=== PATIENT | male | born 1985 | race Native Hawaiian/Other Pacific Islander ===

== ENCOUNTER 2017-02-05 10:23 | Emergency (ER) | payer OTHER ==
[2017-02-05] MEDS ORDERED: PROPARACAINE 0.5% OPHTH DROPS 15 ML BTL RIGHT EYE STA (11:03)
--- NOTE | 2017-02-05 11:06 | ED ---
Eye Problem HPI <Woodrow Green - Last Filed: 02/05/17 11:50> - General Source: patient, RN notes reviewed Mode of arrival: ambulatory Limitations: no limitations <Kristina Pacheco - Last Filed: 02/05/17 15:48> - General Chief complaint: Eye Problems Stated complaint: RT EYE INJURY Time Seen by Provider: 02/05/17 10:42 - History of Present Illness Initial comments: Patient is a 31-year-old male presents emergency room for evaluation of right eye injury. Patient states he was shooting a bow and arrow in the string broke off and hit him in the right eye. Patient states he was wearing his glasses at the time. Patient states having significant pain in his right eye. Patient states he can barely open his eye due to swelling and pain. Patient states the incident happened about 30 minutes ago. Patient denies any other injuries during incident. Patient states he is unable to see out of his right eye since the incident. (Kristina Pacheco) - Related Data Home Medications Medication Instructions Recorded Confirmed Amoxicillin 500 mg PO TID 02/05/17 02/05/17 Allergies Allergy/AdvReac Type Severity Reaction Status Date / Time No Known Allergies Allergy Verified 02/05/17 10:56 Review of Systems ROS Other: All systems not noted in ROS Statement are negative. <Woodrow Green - Last Filed: 02/05/17 11:50> ROS Other: All systems not noted in ROS Statement are negative. <Kristina Pacheco - Last Filed: 02/05/17 15:48> ROS Statement: Those systems with pertinent positive or pertinent negative responses have been documented in the HPI. Past Medical History Past Medical History: No Reported History History of Any Multi-Drug Resistant Organisms: None Reported Past Surgical History: No Surgical Hx Reported Past Psychological History: No Psychological Hx Reported Smoking Status: Current every day smoker Past Alcohol Use History: Occasional Past Drug Use History: None Reported <Kristina Pacheco - Last Filed: 02/05/17 15:48> General Exam <Woodrow Green - Last Filed: 02/05/17 11:50> Limitations: no limitations General appearance: alert, in no apparent distress Head exam: Present: atraumatic, normocephalic, normal inspection Eye exam: Present: EOMI. Absent: PERRL (Left pupil nonreactive to light) Expanded Eyelids: Normal Inspection: Left, Swelling: Right Sclera/Conjunctival: Injection: Right (corneal abrasion ) Anterior chamber: Hyphema: Right ENT exam: Present: normal exam Neck exam: Present: normal inspection Respiratory exam: Absent: respiratory distress Extremities exam: Present: normal inspection Back exam: Present: normal inspection Neurological exam: Present: alert, oriented X3, CN II-XII intact, normal gait Psychiatric exam: Present: normal affect, normal mood Skin exam: Present: warm, dry, intact, normal color. Absent: rash <Kristina Pacheco - Last Filed: 02/05/17 15:48> - General Exam Comments Initial Comments: Sitting in exam room, no acute distress. (Kristina Pacheco) Medical Decision Making <Woodrow Green - Last Filed: 02/05/17 11:50> - Radiology Data Radiology results: report reviewed, image reviewed <Kristina Pacheco - Last Filed: 02/05/17 15:48> - Medical Decision Making The patient is seen and examined. He has a large hyphema noted to the right eye. There is some periorbital contusion noted. There is a large corneal abrasion horizontally was forcing uptake. There is an irregular pupil on the right side. The case is discussed with Dr. Machuca from ophthalmology and he would like the patient to have a computed tomography scan of the orbits and sent directly to his office today. I have discussed the case with the PA and agree with the findings as documented. (Woodrow Green) Patient is a 31-year-old male presents to the emergency room for evaluation of right eye injury. Dr. Green also evaluated patient. Dr. Green spoke with on- call tree inspector, Dr. Machuca who advised that patient receive a computed tomography scan of orbits and come directly to his office. Plan was discussed with patient. Patient states he understands everything that was discussed with him. (Kristina Pacheco) Disposition <Woodrow Green - Last Filed: 02/05/17 11:50> Time of Disposition: 11:52 <Kristina Pacheco - Last Filed: 02/05/17 15:48> Clinical Impression: Periorbital contusion of right eye, Hyphema of right eye, Corneal abrasion, right Disposition: HOME SELF-CARE Condition: Good Instructions: Hyphema (ED), Corneal Abrasion (ED) Additional Instructions: Please go directly to Dr. Meeks's office for further evaluation. If any new symptom arises or symptoms worsen, return to ER as soon as possible. Referrals: Brenna Machuca MD [STAFF PHYSICIAN] - 1-2 days
[2017-02-05] MEDS ORDERED: HYDROcodone/APAP 5-325MG 1 EACH TAB PO STA (11:51)
[2017-02-05 12:45] VITALS: BP 159/94; PULSE 79; RESP 18; TEMP 98
--- NOTE | 2017-02-05 12:46 | CT ---
EXAMINATION TYPE: CT orbits wo con DATE OF EXAM: 02/05/2017 12:40 PM COMPARISON: NONE HISTORY: Patient was hit in eye with a bow string CT DLP: 307 mGycm Automated exposure control for dose reduction was used. Unenhanced CT of the orbits was performed in the axial and coronal planes. Bone and soft tissue window settings are submitted. FINDINGS: There is right periorbital soft tissue edema noted. The globes appear symmetric and intact. There is no evidence for intraorbital hemorrhage. No definite foreign body is seen. Retroconal soft tissues ar e unremarkable. Optic nerves and extraocular musculature appear within normal limits. There is eviden ce of chronic maxillary and ethmoidal sinusitis. No displaced osseous fractures are seen. IMPRESSION: 1. RIGHT PERIORBITAL SOFT TISSUE SWELLING. 2. CHRONIC SINUSITIS.
== END 2017-02-05 12:45 | disposition home or self-care (01) ==
LOC: EC 10:23
DX: S05.11XA Contusion of eyeball and orbital tissues, right eye, initial encounter (principal); F17.200 Nicotine dependence, unspecified, uncomplicated; W20.8XXA Other cause of strike by thrown, projected or falling object, initial encounter; Y93.89 Activity, other specified
CPT/HCPCS: 70480; 99283

== ENCOUNTER 2017-07-13 15:40 | Emergency (ER) | payer OTHER ==
[2017-07-13 15:45] VITALS: RESP 18
[2017-07-13] MEDS ORDERED: HYDROmorphone 1 MG/ML 1 ML SYRINGE IVP STA (16:03)
[2017-07-13] MEDS ORDERED: ONDANSETRON 4 MG/2 ML VIAL IVP STA (16:03)
[2017-07-13] MEDS ORDERED: SODIUM CHLORIDE 0.9% 1,000 ML IV STA (16:03)
--- NOTE | 2017-07-13 16:05 | ED ---
General Adult HPI - General Chief complaint: Abdominal Pain Stated complaint: Abd Pain Time Seen by Provider: 07/13/17 15:50 Source: patient, RN notes reviewed Mode of arrival: ambulatory Limitations: no limitations - History of Present Illness Initial comments: Patient 31-year-old male said no significant past medical history, who presents emergency room today with chief complaint of abdominal pain on and off over the last few months. He does admit that it's been more constant today. Currently rates it a 6/10. States located in the right side of the abdomen. Patient states started on the right upper quadrant but is moving down onto the right lower quadrants well. He states he has noticed that sometimes when he eats or drinks the pain seems to be worse. States is also considered. Possible kidney stone. He has noticed that he's had some bouts of constipation and some increased pressure with voiding. He denies any other complaints or associated symptoms. Patient denies any recent fever, chills, shortness of breath, chest pain, nausea or vomiting, numbness or tingling, dysuria or hematuria, constipation or diarrhea, headaches or visual changes, or any other complaints. - Related Data Home Medications Medication Instructions Recorded Confirmed Naproxen Sodium [Aleve] 440 mg PO Q12HR PRN 07/13/17 07/13/17 Timolol 0.5% Ophth Soln [Timoptic 1 drop RIGHT EYE DAILY 07/13/17 07/13/17 0.5% Ophth Soln] prednisoLONE ACETATE 1% OPHTH 1 drops RIGHT EYE QID 07/13/17 07/13/17 [Pred Forte 1%] Allergies Allergy/AdvReac Type Severity Reaction Status Date / Time codeine Allergy Rash/Hives Verified 07/13/17 17:51 Review of Systems ROS Statement: Those systems with pertinent positive or pertinent negative responses have been documented in the HPI. ROS Other: All systems not noted in ROS Statement are negative. Past Medical History Past Medical History: No Reported History History of Any Multi-Drug Resistant Organisms: None Reported Past Surgical History: No Surgical Hx Reported Past Psychological History: No Psychological Hx Reported Smoking Status: Current every day smoker Past Alcohol Use History: Occasional Past Drug Use History: None Reported General Exam - General Exam Comments Initial Comments: General: The patient is awake and alert, in no distress, and does not appear acutely ill. Eye: Pupils are equal, round and reactive to light, extra-ocular movements are intact. No nystagmus. There is normal conjunctiva bilaterally. No signs of icterus. Ears, nose, mouth and throat: There are moist mucous membranes and no oral lesions. Neck: The neck is supple, there is no tenderness or JVD. Cardiovascular: There is a regular rate and rhythm. No murmur, rub or gallop is appreciated. Respiratory: Lungs are clear to auscultation, respirations are non-labored, breath sounds are equal. No wheezes, stridor, rales, or rhonchi. Gastrointestinal: Normal appearance then. Normal bowel sounds. Abdomen soft on palpation. Patient does have tenderness in the right upper quadrant. Mild right-sided CVA tenderness. No guarding. No rebound tenderness. Musculoskeletal: Normal ROM, no tenderness. Strength 5/5. Sensation intact. Pulses equal bilaterally 2+. Neurological: A&O x 3. CN II-XII intact, There are no obvious motor or sensory deficits. Coordination appears grossly intact. Speech is normal. Skin: Skin is warm and dry and no rashes or lesions are noted. Psychiatric: Cooperative, appropriate mood & affect, normal judgment. Limitations: no limitations Course Vital Signs 07/13/17 07/13/17 15:43 16:48 Temperature 98.9 F Pulse Rate 87 87 Respiratory 18 18 Rate Blood Pressure 175/99 149/80 O2 Sat by Pulse 100 98 Oximetry Medical Decision Making - Medical Decision Making Patient reexamined at this time and show no signs of distress. Resting tone with a stretcher. His labs been reviewed shows an 11,000 white count. Patient' s x-ray shows a moderate amount stool no sign of obstruction. Patient's ultrasound is negative for any evidence of gallstones. Results were discussed with the patient. Sinus symptoms return were discussed with the patient. At this time just been discharged from he will be given magnesium citrate and advised to use this for his symptoms. Advised to follow-up with family doctor over the next 2 days return here to the emergency room symptoms increase or worsen. - Lab Data Result diagrams: 07/13/17 16:24 07/13/17 16:24 Lab Results 07/13/17 07/13/17 07/13/17 Range/Units 16:24 16:24 17:46 WBC 11.2 H (3.8-10.6) k/uL RBC 4.90 (4.30-5.90) m/uL Hgb 15.4 (13.0-17.5) gm/dL Hct 43.5 (39.0-53.0) % MCV 88.7 (80.0-100.0) fL MCH 31.4 (25.0-35.0) pg MCHC 35.4 (31.0-37.0) g/dL RDW 12.9 (11.5-15.5) % Plt Count 308 (150-450) k/uL Neutrophils % 58 % Lymphocytes % 29 % Monocytes % 7 % Eosinophils % 4 % Basophils % 1 % Neutrophils # 6.5 (1.3-7.7) k/uL Lymphocytes # 3.2 (1.0-4.8) k/uL Monocytes # 0.8 (0-1.0) k/uL Eosinophils # 0.5 (0-0.7) k/uL Basophils # 0.1 (0-0.2) k/uL Sodium 142 (137-145) mmol/L Potassium 4.3 (3.5-5.1) mmol/L Chloride 106 (98-107) mmol/L Carbon Dioxide 25 (22-30) mmol/L Anion Gap 11 mmol/L BUN 14 (9-20) mg/dL Creatinine 0.99 (0.66-1.25) mg/dL Est GFR (MDRD) Af Amer >60 (>60 ml/min/1.73 sqM) Est GFR (MDRD) Non-Af >60 (>60 ml/min/1.73 sqM) Glucose 90 (74-99) mg/dL Calcium 9.6 (8.4-10.2) mg/dL Total Bilirubin 0.4 (0.2-1.3) mg/dL AST 52 (17-59) U/L ALT 95 H (21-72) U/L Alkaline Phosphatase 74 (38-126) U/L Total Protein 7.2 (6.3-8.2) g/dL Albumin 4.7 (3.5-5.0) g/dL Amylase 58 (30-110) U/L Lipase 52 (23-300) U/L Urine Color Yellow Urine Appearance Clear (Clear) Urine pH 6.0 (5.0-8.0) Ur Specific Grandy 1.017 (1.001-1.035) Urine Protein Negative (Negative) Urine Glucose (UA) Negative (Negative) Urine Ketones Negative (Negative) Urine Blood Negative (Negative) Urine Nitrite Negative (Negative) Urine Bilirubin Negative (Negative) Urine Urobilinogen <2.0 (<2.0) mg/dL Ur Leukocyte Esterase Negative (Negative) Disposition Clinical Impression: Abdominal pain Disposition: HOME SELF-CARE Condition: Poor Instructions: Abdominal Pain (ED) Additional Instructions: Please use medication as discussed. Please follow-up with family doctor in the next 2 days of symptoms have not improved. Please return to emergency room if the symptoms increase or worsen or for any other concerns. Referrals: None,Stated [Primary Care Provider] - 1-2 days Yinka Pagan MD [STAFF PHYSICIAN] - 1-2 days Time of Disposition: 18:16
[2017-07-13 16:34] LABS: Basophils # (A) 0.1 k/uL (0-0.2); Basophils % (A) 1 %; CH 32.4; CHCM 36.7; Eosinophils # (A) 0.5 k/uL (0-0.7); Eosinophils % (A) 4 %; HCT 43.5 % (39.0-53.0); HDW 2.38; HGB 15.4 gm/dL (13.0-17.5); Luc # (Auto) 0.13; Luc % (Auto) 1; Lymphocytes # (A) 3.2 k/uL (1.0-4.8); Lymphocytes % (A) 29 %; MCH 31.4 pg (25.0-35.0); MCHC 35.4 g/dL (31.0-37.0); MCV 88.7 fL (80.0-100.0); Mean Platelet Volume 7.4; Monocytes # (A) 0.8 k/uL (0-1.0); Monocytes % (A) 7 %; Neutrophils # (A) 6.5 k/uL (1.3-7.7); Neutrophils % (A) 58 %; RDW 12.9 % (11.5-15.5); WBC 11.2 k/uL (3.8-10.6); WBC (Perox) 10.33
[2017-07-13 16:43] LABS: ALT 95 U/L (21-72); AST 52 U/L (17-59); Alkaline Phosphatase 74 U/L (38-126); Amylase 58 U/L (30-110); Anion Gap 11 mmol/L; Blood Urea Nitrogen 14 mg/dL (9-20); Calcium 9.6 mg/dL (8.4-10.2); Carbon Dioxide 25 mmol/L (22-30); Chloride 106 mmol/L (98-107); Glucose 90 mg/dL (74-99); Non-African American GFR(MDRD) >60 (>60 ml/min/1.73 sqM); Potassium 4.3 mmol/L (3.5-5.1); Sodium 142 mmol/L (137-145); Total Bilirubin 0.4 mg/dL (0.2-1.3); Total Protein 7.2 g/dL (6.3-8.2)
--- NOTE | 2017-07-13 16:44 | XR ---
EXAMINATION TYPE: XR KUB DATE OF EXAM: 07/13/2017 COMPARISON: NONE HISTORY: Right-sided pain and pressure TECHNIQUE: 2 views FINDINGS: Bowel gas pattern is normal. There is no sign of intestinal obstruction or pneumoperitoneum . Fecal pattern is normal. There are no pathologic calcifications over the kidneys. Bony structures a re intact. IMPRESSION: Nonacute abdomen.
[2017-07-13 17:53] LABS: Appearance,Urine Clear (Clear); Bilirubin,Urine Negative (Negative); Glucose,Urine (UA) Negative (Negative); Ketones,Urine Negative (Negative); Leukocyte Esterase,Urine Negative (Negative); Nitrite,Urine Negative (Negative); Protein,Urine Negative (Negative); Specific Gravity,Urine 1.017 (1.001-1.035); UA Billing (MACRO vs. MICRO) CHEM; Urobilinogen,Urine <2.0 mg/dL (<2.0)
--- NOTE | 2017-07-13 17:54 | US ---
EXAMINATION TYPE: US abdomen limited DATE OF EXAM: 07/13/2017 COMPARISON: NONE CLINICAL HISTORY: Pain. Abdomen pain and nausea x 2 weeks, exam done portable in ER. EXAM MEASUREMENTS: Liver Length: 15.1 cm Gallbladder Wall: 0.2 cm CBD: 0.3 cm Right Kidney: 11.2 x 4.2 x 5.2 cm Pancreas: visualized portions wnl, tail obscured by overlying midline bowel gas Liver: wnl Gallbladder: wnl Evidence for sonographic Louie's sign: no CBD: wnl Right Kidney: visualized portions wnl, inferior pole limited by overlying bowel gas IMPRESSION: Normal right upper quadrant abdominal sonogram. No gallstones or dilated ducts.
[2017-07-13] MEDS ORDERED: MAGNESIUM CITRATE 296 ML BOTTLE PO ONE (18:17)
[2017-07-13 18:41] VITALS: BP 140/90; PULSE 60; TEMP 98.3
== END 2017-07-13 18:39 | disposition home or self-care (01) ==
LOC: EC 15:40
DX: R10.11 Right upper quadrant pain (principal); R10.31 Right lower quadrant pain; K59.00 Constipation, unspecified; R68.89 Other general symptoms and signs; F17.200 Nicotine dependence, unspecified, uncomplicated; Z79.52 Long term (current) use of systemic steroids; Z79.899 Other long term (current) drug therapy; Z88.5 Allergy status to narcotic agent
CPT/HCPCS: 99284; 96374; 96375; 96361; 36415; 80053; 82150; 83690; 85025; 81003; 74000; 76705; J2405; J1170